=== PATIENT | male | born 1965 | race African-American/Black ===

== ENCOUNTER 2017-07-11 11:54 | Inpatient (IN) | payer SELFPAY ==
[~2017-07-11] VITALS: Ht 190.5 cm; Wt 128.5 kg
[2017-07-11] MEDS ORDERED: SODIUM CHLORIDE 0.9% 1,000 ML IV ONE ×2 (12:22)
[2017-07-11 14:28] LABS: Basophils # (auto) 0 uL; Eosinophils # (auto) 0 uL; Eosinophils % (auto) 0.1 % (0.0-7.0); Hemoglobin 14.4 g/dL (13.5-17.5); Lymphocytes # (auto) 0.5 uL; Monocytes # (auto) 0.8 uL; Nucleated Red Blood Cells % 0.1 %; White Blood Cell 8.3 10^3/uL (4.4-10.8)
[2017-07-11 14:31] LABS: Basophils % (auto) 0.4 % (0.0-2.0); Hematocrit 41.6 % (41.0-53.0); Lymphocytes % (auto) 6.3 % (10.0-50.0); Mean Corpuscular Hgb Conc. 34.7 g/dL (32.0-36.0); Mean Corpuscular Volume 100.9 fL (80.0-100.0); Mean Platelet Volume 10.6 fL (6.9-10.8); Monocytes % (auto) 9.6 % (0.0-12.0); Neutrophils # (auto) 6.9 uL; Neutrophils % (auto) 83.6 % (37.0-80.0); Red Cell Distribution Width 14.8 % (11.8-14.3)
[2017-07-11 14:41] LABS: INR 1.53 (0.9-1.15); Partial Thromboplastin Time 29.2 sec (22.64-33.71); Prothrombin Time 16.8 sec (9.37-12.3)
[2017-07-11] MEDS ORDERED: LACTULOSE 20Gm/30ML SOLN PO PRN (14:45)
[2017-07-11] MEDS ORDERED: ACETAMINOPHEN 500 MG TAB PO PRN (14:45)
[2017-07-11] MEDS ORDERED: LEVETIRACETAM 500 MG TAB PO ONE (14:45)
[2017-07-11] MEDS ORDERED: MORPHINE SULF INJ 2 MG/ML SYRINGE 1ML IV PRN ×2 (14:45)
[2017-07-11] MEDS ORDERED: LORazepam 0.5 MG TAB PO PRN (14:45)
[2017-07-11] MEDS ORDERED: NITROGLYCERIN 0.4 MG SL TAB SL PRN (14:45)
[2017-07-11] MEDS ORDERED: PROMETHAZINE HCL 25 MG/ML 1ML IV PRN (14:45)
[2017-07-11] MEDS ORDERED: LORazepam 2MG/ML-1ML VIAL IV PRN (14:45)
[2017-07-11 14:49] LABS: BUN/Creatinine Ratio 4.2; Bilirubin, Total 4.5 mg/dL (0.2-1.0); Calcium 8.1 mg/dL (8.5-10.1); Potassium 4.4 mmol/L (3.5-5.1); Total Protein 9.1 g/dL (6.4-8.2)
[2017-07-11 15:03] LABS: Platelet Count (auto) 63 10^3/uL (140-450)
[2017-07-11 15:04] LABS: Giant Platelets Few; Macrocytosis Slight; Platelet Estimate Decreased
[2017-07-11] MEDS: SODIUM CHLORIDE 0.9% 1,000 ML IV SCH (15:12)
[2017-07-11] MEDS ORDERED: chlordiazePOXIDE HCL 25 MG CAP PO PRN (15:30)
[2017-07-11] MEDS ORDERED: THIAMINE HCL 100 MG/ML 2ML VIAL IV ONE (15:30)
[2017-07-11 17:15] LABS: Hepatitis B Surface Antibody Negative
[2017-07-11] MEDS: chlordiazePOXIDE HCL 5 MG CAP PO SCH (17:26)
[2017-07-11 18:02] LABS: Urine RBC None Seen /hpf (0 - 3)
[2017-07-11 18:15] LABS: Urine Bilirubin Negative (Negative); Urine Blood Negative /uL (Negative); Urine Color Yellow (Yellow); Urine Glucose Normal (Normal); Urine Ketone Negative (Negative); Urine Nitrite Negative (Negative); Urine Squamous Epithelial Cell FEW /hpf (<5); Urine pH 6.5 (5.0-8.0)
[2017-07-11 20:00] VITALS: BP 151/87
[2017-07-11 22:00] VITALS: BP 151/87
[2017-07-11] MEDS: LEVETIRACETAM 500 MG TAB PO SCH (22:09)
[2017-07-11] MEDS ORDERED: IBUP200C3 PO (23:08)
[2017-07-11 23:23] VITALS: BP 151/87
[2017-07-12] VITALS (8 sets, daily range): BP systolic 126–153; BP diastolic 45–96
[2017-07-12] MEDS: chlordiazePOXIDE HCL 5 MG CAP PO SCH ×5 (00:12→23:34)
[2017-07-12 06:18] LABS: Cholesterol 163 mg/dL (< 200); HDL Cholesterol 38 mg/dL (40-59); LDL Cholesterol 108 mg/dL (< 100); Triglycerides 146 mg/dL (< 150)
[2017-07-12] MEDS: SODIUM CHLORIDE 0.9% 1,000 ML IV SCH ×2 (06:28→17:34)
[2017-07-12] MEDS ORDERED: ENOXAPARIN SOD 40 MG/0.4 ML SYRINGE SC SCH (10:00)
[2017-07-12] MEDS: THIAMINE HCL 100 MG/ML 2ML VIAL IV SCH (10:09)
[2017-07-12] MEDS: LEVETIRACETAM 500 MG TAB PO SCH (10:09)
[2017-07-12] MEDS: HYDROcodone-ACET 5/325MG TAB PO PRN (17:31)
[2017-07-13] MEDS: HYDROcodone-ACET 5/325MG TAB PO PRN ×3 (02:22→20:42)
[2017-07-13 05:00] VITALS: BP 137/88
[2017-07-13] MEDS: chlordiazePOXIDE HCL 5 MG CAP PO SCH (05:54)
[2017-07-13] MEDS: SODIUM CHLORIDE 0.9% 1,000 ML IV SCH (06:37)
[2017-07-13 09:00] VITALS: BP 143/87
[2017-07-13] MEDS: THIAMINE HCL 100 MG/ML 2ML VIAL IV SCH (09:58)
[2017-07-13] MEDS ORDERED: FOLIC ACID 1 MG TAB PO ONE (11:15)
[2017-07-13] MEDS ORDERED: MORPHINE SULF INJ 2 MG/ML SYRINGE 1ML IV PRN (11:15)
[2017-07-13] MEDS ORDERED: MULTIPLE VITAMINS W/ MINERALS TAB PO ONE (11:15)
[2017-07-13] MEDS ORDERED: amLODIPine BESYLATE 5 MG TAB PO ONE (11:30)
[2017-07-13] MEDS ORDERED: PANTOPRAZOLE 40 MG TAB PO ONE (11:30)
[2017-07-13 13:00] VITALS: BP 153/95
[2017-07-13] MEDS: chlordiazePOXIDE HCL 25 MG CAP PO SCH ×2 (13:44→20:42)
[2017-07-13 17:00] VITALS: BP 136/74
[2017-07-13] MEDS: ATORVASTATIN 20 MG TAB PO SCH (20:42)
[2017-07-13] MEDS: TEMAZEPAM 15 MG CAP PO PRN (20:43)
[2017-07-13 22:00] VITALS: BP 143/74
[2017-07-14 05:00] VITALS: BP 132/71
[2017-07-14] MEDS: chlordiazePOXIDE HCL 25 MG CAP PO SCH ×3 (05:39→21:02)
[2017-07-14 05:57] LABS: Albumin 2.9 g/dL (3.4-5.0); Bilirubin, Total 2.4 mg/dL (0.2-1.0); Potassium 4.7 mmol/L (3.5-5.1); Total Protein 8.1 g/dL (6.4-8.2)
[2017-07-14] MEDS: FOLIC ACID 1 MG TAB PO SCH (10:21)
[2017-07-14] MEDS: MULTIPLE VITAMINS W/ MINERALS TAB PO SCH (10:21)
[2017-07-14] MEDS: PANTOPRAZOLE 40 MG TAB PO SCH (10:21)
[2017-07-14] MEDS: THIAMINE HCL 100 MG/ML 2ML VIAL IV SCH (10:21)
[2017-07-14] MEDS: amLODIPine BESYLATE 5 MG TAB PO SCH (10:22)
[2017-07-14 13:00] VITALS: BP_SYST 148; BP_SYST 150; BP_DIAS 86; BP_DIAS 95
[2017-07-14 17:05] VITALS: BP 137/86
[2017-07-14] MEDS: ATORVASTATIN 20 MG TAB PO SCH (21:01)
[2017-07-14] MEDS: HYDROcodone-ACET 5/325MG TAB PO PRN (21:02)
[2017-07-14] MEDS: TEMAZEPAM 15 MG CAP PO PRN (21:02)
[2017-07-14 22:00] VITALS: BP 146/87
[2017-07-15 05:32] LABS: Basophils # (auto) 0.1 uL; Eosinophils # (auto) 0.1 uL; White Blood Cell 6.1 10^3/uL (4.4-10.8)
[2017-07-15 05:37] LABS: Basophils % (auto) 1.3 % (0.0-2.0); Eosinophils % (auto) 1.5 % (0.0-7.0); Hematocrit 38.3 % (41.0-53.0); Hemoglobin 13.2 g/dL (13.5-17.5); Lymphocytes # (auto) 1.3 uL; Lymphocytes % (auto) 21.4 % (10.0-50.0); Mean Corpuscular Hemoglobin 35.5 pg (28.0-32.0); Mean Corpuscular Hgb Conc. 34.6 g/dL (32.0-36.0); Mean Corpuscular Volume 102.8 fL (80.0-100.0); Mean Platelet Volume 10.3 fL (6.9-10.8); Monocytes # (auto) 0.9 uL; Monocytes % (auto) 14.2 % (0.0-12.0); Neutrophils # (auto) 3.8 uL; Neutrophils % (auto) 61.6 % (37.0-80.0); Nucleated Red Blood Cells % 0.2 %; Platelet Count (auto) 70 10^3/uL (140-450)
[2017-07-15] MEDS: chlordiazePOXIDE HCL 25 MG CAP PO SCH ×2 (05:44→14:55)
[2017-07-15 05:49] LABS: Calcium 8.2 mg/dL (8.5-10.1); Magnesium 2.1 mg/dL (1.6-2.6); Potassium 4.6 mmol/L (3.5-5.1)
[2017-07-15 05:52] LABS: Albumin 2.8 g/dL (3.4-5.0); BUN/Creatinine Ratio 6.7; INR 1.35 (0.9-1.15); Prothrombin Time 14.8 sec (9.37-12.3)
[2017-07-15 05:55] LABS: Bilirubin, Total 2.8 mg/dL (0.2-1.0); Total Protein 8.4 g/dL (6.4-8.2)
[2017-07-15 06:00] VITALS: BP 143/92
[2017-07-15 08:18] VITALS: BP 147/93
[2017-07-15] MEDS: FOLIC ACID 1 MG TAB PO SCH (09:32)
[2017-07-15] MEDS: THIAMINE HCL 100 MG/ML 2ML VIAL IV SCH (09:32)
[2017-07-15] MEDS: PANTOPRAZOLE 40 MG TAB PO SCH (09:32)
[2017-07-15] MEDS: MULTIPLE VITAMINS W/ MINERALS TAB PO SCH (09:32)
[2017-07-15] MEDS: amLODIPine BESYLATE 5 MG TAB PO SCH (09:33)
[2017-07-15 13:00] VITALS: BP 145/82
[2017-07-15] MEDS: HYDROcodone-ACET 5/325MG TAB PO PRN (14:59)
[2017-07-15 17:00] VITALS: BP 140/83
== END 2017-07-15 19:02 | disposition home or self-care (01) | DRG 101 ==
LOC: ER 11:54 → TELE 11:55 → TELE-WESTW 19:35 → WEST WING 07-13 17:59
PROVIDERS: ADMIT Internal Medicine; ATTEND Internal Medicine Pulmonary Disease
DX: G40.409 Other generalized epilepsy and epileptic syndromes, not intractable, without status epilepticus (principal); D68.9 Coagulation defect, unspecified; K70.9 Alcoholic liver disease, unspecified; E87.1 Hypo-osmolality and hyponatremia; E44.1 Mild protein-calorie malnutrition; E66.9 Obesity, unspecified; Z68.35 Body mass index [BMI] 35.0-35.9, adult; E78.5 Hyperlipidemia, unspecified; F10.10 Alcohol abuse, uncomplicated; I10 Essential (primary) hypertension; J44.9 Chronic obstructive pulmonary disease, unspecified; K21.9 Gastro-esophageal reflux disease without esophagitis; Z82.49 Family history of ischemic heart disease and other diseases of the circulatory system; Z82.5 Family history of asthma and other chronic lower respiratory diseases; Z83.3 Family history of diabetes mellitus; Z72.0 Tobacco use
CPT/HCPCS: 36415; 70450; 71010; 76705; 80053; 80061; 80307; 81001; 82550; 83735; 84484; 85025; 85610; 85652; 85730; 86704; 86706; 86708; 86803; 87340; 93005; 94660; 95819; 96361; 96374; 97163